=== PATIENT | female | born 1960 | race African-American/Black ===

== ENCOUNTER 2021-11-28 10:14 | Inpatient (IN) | payer MEDICARE, MEDICAID ==
[~2021-11-28] VITALS: Ht 160 cm; Wt 77.1 kg
[2021-11-28] MEDS ORDERED: KETOROLAC 30MG/ML VIAL IV STA (10:22)
[2021-11-28] MEDS ORDERED: SODIUM CHLORIDE 0.9% 1,000 ML IV ONE (10:30)
[2021-11-28] MEDS ORDERED: HYDROCODONE/ACETAMINOPHEN 10/325MG TABLET PO ONE (11:30)
[2021-11-28 11:44] LABS: BASOPHILS % 0.9 % (0.0-2.0); EOSINOPHILS % 1.1 % (0.0-5.0); HEMATOCRIT. 41.5 % (36.0-48.0); LYMPHOCYTES % 39.3 % (20.0-50.0); MEAN CORPUSCULAR HEMOGLOBIN 28.6 pg (28.0-32.0); MEAN PLATELET VOLUME 9.1 fl (7.4-10.4); MONOCYTES % 7.1 % (2.0-8.0); NEUTROPHILS % 51.6 % (40.0-76.0); PLATELET 147 x1000/uL (130-400); RED BLOOD CELL COUNT 4.88 mill/uL (4.2-5.4); RED CELL DISTRIBUTION WIDTH 13.4 % (11.6-14.6)
[2021-11-28 11:51] LABS: CHLORIDE 107 mEq/L (98-107)
[2021-11-28] MEDS ORDERED: HYDROMORPHONE HCL/PF 2MG/ML CPJ IV ONE (14:45)
[2021-11-28 14:52] LABS: CLARITY URINE CLEAR (CLEAR); COLOR URINE YELLOW (YELLOW); KETONES URINE NEGATIVE (NEGATIVE); LEUKOCYTE ESTERASE URINE NEGATIVE (NEGATIVE); NITRITE URINE NEGATIVE (NEGATIVE); OCCULT BLOOD URINE NEGATIVE (NEGATIVE); PH URINE 7.5 (4.5-8.0); PROTEIN URINE NEGATIVE (NEGATIVE); SPECIFIC GRAVITY URINE 1.014 (1.005-1.030); UROBILINOGEN URINE 0.2 E.U./dL (0.2-1.0)
[2021-11-29 00:48] VITALS: BP 129/61
[2021-11-29] MEDS ORDERED: ONDANSETRON HCL 4MG/2ML INJ IV PRN (03:00)
[2021-11-29] MEDS ORDERED: NALOXONE HCL 0.4 MG/ML 1ML VIAL IV PRN (03:30)
[2021-11-29 04:00] VITALS: BP 124/67
[2021-11-29] MEDS: HYDROMORPHONE HCL/PF 2MG/ML CPJ IV PRN ×2 (04:05→20:53)
[2021-11-29] MEDS: DEXT 5%/0.45% NACL KCL 20MEQ/L 1,000 ML IV SCH (04:10)
[2021-11-29 04:35] LABS: CHLORIDE 105 mEq/L (98-107)
[2021-11-29] MEDS: PANTOPRAZOLE SODIUM 40 MG/VIAL IV SCH (05:21)
[2021-11-29 08:00] VITALS: BP 154/78
[2021-11-29] MEDS: ENOXAPARIN 40MG/0.4ML SYR SUBCUT SCH (08:33)
[2021-11-29 12:00] VITALS: BP 127/71
[2021-11-29 16:00] VITALS: BP 139/70
[2021-11-29 20:00] VITALS: BP 148/63
[2021-11-30] VITALS: BP 114/52
[2021-11-30] MEDS: DEXT 5%/0.45% NACL KCL 20MEQ/L 1,000 ML IV SCH (00:55)
[2021-11-30 04:00] VITALS: BP 112/49
[2021-11-30] MEDS: PANTOPRAZOLE SODIUM 40 MG/VIAL IV SCH (06:38)
[2021-11-30 08:00] VITALS: BP 119/52
[2021-11-30] MEDS: HYDROMORPHONE HCL/PF 2MG/ML CPJ IV PRN ×3 (08:40→21:44)
[2021-11-30] MEDS: ENOXAPARIN 40MG/0.4ML SYR SUBCUT SCH (08:41)
[2021-11-30 12:00] VITALS: BP 107/65
[2021-11-30 16:00] VITALS: BP 115/56
[2021-11-30 20:00] VITALS: BP 121/44
[2021-12-01] MEDS: PANTOPRAZOLE SODIUM 40 MG/VIAL IV SCH (07:14)
[2021-12-01 08:00] VITALS: BP 117/50
[2021-12-01] MEDS: ENOXAPARIN 40MG/0.4ML SYR SUBCUT SCH (08:36)
[2021-12-01] MEDS: HYDROMORPHONE HCL/PF 2MG/ML CPJ IV PRN ×3 (08:36→21:04)
[2021-12-01 12:00] VITALS: BP 109/60
[2021-12-01] MEDS ORDERED: LACTULOSE 20G/30ML UDC PO PRN (15:15)
[2021-12-01] MEDS ORDERED: CLONIDINE 0.1MG TABLET PO PRN (15:15)
[2021-12-01] MEDS ORDERED: DIPHENHYDRAMINE 50MG/ML VIAL IV PRN (15:15)
[2021-12-01] MEDS ORDERED: IPRATROPIUM/ALBUTEROL 0.5-3(2.5)MG/3ML NEB HHN PRN (15:15)
[2021-12-01] MEDS ORDERED: ACETAMINOPHEN 650MG SUPP PR PRN (15:15)
[2021-12-01] MEDS ORDERED: BISACODYL 10MG SUPP PR PRN (15:15)
[2021-12-01] MEDS ORDERED: ACETAMINOPHEN 325MG TABLET PO PRN (15:15)
[2021-12-01 16:00] VITALS: BP 127/67
[2021-12-01 17:48] LABS: BASOPHILS % 0.5 % (0.0-2.0); EOSINOPHILS % 1.9 % (0.0-5.0); HEMATOCRIT. 41.5 % (36.0-48.0); HEMOGLOBIN. 13.9 g/dL (12.0-16.0); LYMPHOCYTES % 48.9 % (20.0-50.0); MEAN CORPUSCULAR HEMOGLOBIN 28.5 pg (28.0-32.0); MEAN CORPUSCULAR VOLUME 85.2 fL (81.0-99.0); MEAN PLATELET VOLUME 9.4 fl (7.4-10.4); MONOCYTES % 7.3 % (2.0-8.0); NEUTROPHILS % 41.4 % (40.0-76.0); PLATELET 180 x1000/uL (130-400); RED BLOOD CELL COUNT 4.87 mill/uL (4.2-5.4); RED CELL DISTRIBUTION WIDTH 13.2 % (11.6-14.6)
[2021-12-01 18:37] LABS: CHLORIDE 105 mEq/L (98-107)
[2021-12-01 20:00] VITALS: BP 137/62
[2021-12-02] VITALS: BP 116/52
[2021-12-02] MEDS: HYDROMORPHONE HCL/PF 2MG/ML CPJ IV PRN ×4 (02:59→21:25)
[2021-12-02 04:00] VITALS: BP 98/51
[2021-12-02] MEDS: PANTOPRAZOLE SODIUM 40 MG/VIAL IV SCH (06:14)
[2021-12-02 07:50] LABS: BASOPHILS % 0.6 % (0.0-2.0); HEMOGLOBIN. 13.4 g/dL (12.0-16.0); LYMPHOCYTES % 45.3 % (20.0-50.0); MEAN CORPUSCULAR HEMOGLOBIN 29.1 pg (28.0-32.0); MEAN CORPUSCULAR VOLUME 84.8 fL (81.0-99.0); MEAN PLATELET VOLUME 9.4 fl (7.4-10.4); MONOCYTES % 6.7 % (2.0-8.0); NEUTROPHILS % 45.4 % (40.0-76.0); PLATELET 173 x1000/uL (130-400); RED BLOOD CELL COUNT 4.59 mill/uL (4.2-5.4); RED CELL DISTRIBUTION WIDTH 13.3 % (11.6-14.6)
[2021-12-02 08:00] VITALS: BP 111/52
[2021-12-02 09:02] LABS: CHLORIDE 105 mEq/L (98-107)
[2021-12-02 09:09] LABS: LDL CHOLESTEROL 125 mg/dL (5-100)
[2021-12-02 09:11] LABS: T4 FREE 1.13 ng/dL (0.76-1.46)
[2021-12-02] MEDS: ENOXAPARIN 40MG/0.4ML SYR SUBCUT SCH (09:11)
[2021-12-02 09:12] LABS: HDL CHOLESTEROL 46 mg/dL (40-59)
[2021-12-02] MEDS ORDERED: HYDROCODONE/ACETAMINOPHEN 5/325MG TABLET PO PRN (10:15)
[2021-12-02 12:00] VITALS: BP 122/60
[2021-12-02] MEDS ORDERED: DEXAMETHASONE 10 MG/ML VIAL IV SCH (12:00)
[2021-12-02 16:00] VITALS: BP 129/62
[2021-12-02] MEDS: DEXAMETHASONE 4MG/ML 1ML VIAL IV SCH (17:03)
[2021-12-02 20:00] VITALS: BP 111/61
[2021-12-02] MEDS ORDERED: ATORVASTATIN CALCIUM 10MG TABLET PO SCH (21:00)
[2021-12-03] VITALS: BP 128/71
[2021-12-03] MEDS: DEXAMETHASONE 4MG/ML 1ML VIAL IV SCH ×4 (00:04→11:12)
[2021-12-03] MEDS: HYDROMORPHONE HCL/PF 2MG/ML CPJ IV PRN ×3 (00:50→12:20)
[2021-12-03 04:00] VITALS: BP 116/61
[2021-12-03] MEDS: PANTOPRAZOLE SODIUM 40 MG/VIAL IV SCH (06:00)
[2021-12-03 08:00] VITALS: BP 116/57
[2021-12-03] MEDS: ENOXAPARIN 40MG/0.4ML SYR SUBCUT SCH (09:15)
[2021-12-03 12:00] VITALS: BP 140/57
[2021-12-03] MEDS ORDERED: MELO-104 MT (12:14)
[2021-12-03] MEDS ORDERED: ATOR10TA MT (12:14)
[2021-12-03] MEDS ORDERED: MED4 MT (12:14)
[2021-12-03 13:43] VITALS: BP 140/57
== END 2021-12-03 15:25 | disposition home health service (06) | DRG 551 ==
LOC: ER 10:14 → 6EST 17:14 → ENRESERV 22:09
PROVIDERS: ADMIT Internal Medicine; ATTEND Internal Medicine
DX: M48.061 Spinal stenosis, lumbar region without neurogenic claudication (principal); G03.9 Meningitis, unspecified; M54.16 Radiculopathy, lumbar region; F41.9 Anxiety disorder, unspecified; G89.4 Chronic pain syndrome; M46.1 Sacroiliitis, not elsewhere classified; R10.9 Unspecified abdominal pain; K21.9 Gastro-esophageal reflux disease without esophagitis; Z20.822 Contact with and (suspected) exposure to COVID-19; M25.451 Effusion, right hip; M16.0 Bilateral primary osteoarthritis of hip; Z79.899 Other long term (current) drug therapy; Z87.442 Personal history of urinary calculi; Z90.710 Acquired absence of both cervix and uterus; Z98.1 Arthrodesis status; Z88.5 Allergy status to narcotic agent; Z88.8 Allergy status to other drugs, medicaments and biological substances
CPT/HCPCS: 36415; 72131; 72148; 72170; 73130; 73721; 74176; 80048; 80053; 80061; 81003; 83036; 84439; 84443; 85025; 87426; 93005; 97161; 99285; C1893; C9113; J1100; J1170; J1650; J1885; J2405; J7030

== ENCOUNTER 2022-04-09 10:45 | Emergency (ER) | payer MEDICARE, MEDICAID ==
[~2022-04-09] VITALS: Ht 162.6 cm; Wt 79.0 kg
[~2022-04-09 10:45] MED LIST: ATOR10TA MT; MED4 MT; MELO-104 MT
[2022-04-09 10:59] VITALS: BP 157/63
[2022-04-09] MEDS ORDERED: ACETAMINOPHEN WITH CODEINE 300/30MG TABLET PO ONE (11:15)
[2022-04-09] MEDS ORDERED: METHOCARBAMOL 500MG TABLET PO ONE (11:15)
[2022-04-09] MEDS ORDERED: LIDOCAINE 5% PATCH TOP SCH (11:15)
[2022-04-09 11:58] LABS: CLARITY URINE CLEAR (CLEAR); COLOR URINE DARK YELLOW (YELLOW); KETONES URINE TRACE (NEGATIVE); LEUKOCYTE ESTERASE URINE TRACE (NEGATIVE); NITRITE URINE NEGATIVE (NEGATIVE); OCCULT BLOOD URINE NEGATIVE (NEGATIVE); PROTEIN URINE NEGATIVE (NEGATIVE); SPECIFIC GRAVITY URINE 1.028 (1.005-1.030); UROBILINOGEN URINE 0.2 E.U./dL (0.2-1.0)
[2022-04-09] MEDS ORDERED: ACET-2708 MT (13:52)
[2022-04-09] MEDS ORDERED: METH-773 MT (13:52)
[2022-04-09] MEDS ORDERED: SULF1TAB48 MT (13:52)
[2022-04-09] MEDS ORDERED: LIDO1ADH23 TP (13:52)
== END 2022-04-09 14:07 | disposition home or self-care (01) ==
LOC: ER 10:45
DX: M54.59 Other low back pain (principal); M79.604 Pain in right leg; N39.0 Urinary tract infection, site not specified; R03.0 Elevated blood-pressure reading, without diagnosis of hypertension
CPT/HCPCS: 81003; 99283